=== PATIENT | male | born 1955 | race Caucasian/White ===

== ENCOUNTER 2020-02-07 08:24 | Inpatient (IN) | payer BC ==
[2020-02-02 13:10] LABS: BASOPHILS # (AUTO) 0.1 X10'3 (0-0.2); BASOPHILS % (AUTO) 0.9 % (0-1); EOSINOPHILS # (AUTO) 0.2 X10'3 (0-0.9); EOSINOPHILS % (AUTO) 3.5 % (0-6); LYMPHOCYTES # (AUTO) 2.4 X10'3 (1.1-4.8); LYMPHOCYTES % (AUTO) 40.1 % (21-51); MEAN CORPUSCULAR HEMOGLOBIN 32.7 PG (27.0-31.0); MEAN CORPUSCULAR HGB CONC 33.9 g/dL (33.0-36.5); MEAN CORPUSCULAR VOLUME 96.5 FL (78-98); MEAN PLATELET VOLUME 7.7 FL (7.4-10.4); MONOCYTES # (AUTO) 0.5 X10'3 (0-0.9); MONOCYTES % (AUTO) 8.3 % (2-12); NEUTROPHILS # (AUTO) 2.8 X10'3 (1.8-7.7); NEUTROPHILS % (AUTO) 47.2 % (42-75); PRE OP HEMATOCRIT 39.8 % (42.0-52.0); PRE OP HEMOGLOBIN 13.5 g/dL (14.0-17.9); PRE OP PLATELET COUNT 222 X10'3 (140-440); RED BLOOD COUNT 4.13 X10'6 (4.70-6.10); RED CELL DISTRIBUTION WIDTH 12.7 % (11.5-14.5)
[2020-02-02 13:24] LABS: ALBUMIN 3.5 G/DL (3.4-5.0); ALKALINE PHOSPHATASE 55 IU/L (46-116); BLOOD UREA NITROGEN 11 MG/DL (7-18); BUN/CREATININE RATIO 15.1 (5.4-32.0); CALCIUM 8.8 MG/DL (8.5-10.1); CHLORIDE 106 MMOL/L (99-107); CREATININE 0.73 MG/DL (0.60-1.10); PRE OP ALT 25 U/L (30-65); PRE OP ANION GAP 7 (8-16); PRE OP AST 17 U/L (10-37); PRE OP BILIRUB, TOTAL 0.4 MG/DL (0.0-1.0); PRE OP GLUCOSE 90 MG/DL (70-104); PRE OP POTASSIUM 3.6 MMOL/L (3.4-5.1); PRE OP SODIUM 144 MMOL/L (135-145); TOTAL CARBON DIOXIDE 31.2 MMOL/L (24-32); TOTAL PROTEIN 6.9 G/DL (6.4-8.2); eGFR > 90 ML/MIN
[2020-02-07] VITALS (18 sets, daily range): BP systolic 106–162; BP diastolic 62–95
[~2020-02-07] VITALS: Ht 192.4 cm; Wt 95.3 kg
[~2020-02-07 08:24] MED LIST: AMLO10TA13 PO; CYCL-1 PO; DUPI300S IM; HYDROcodone/acetaminophen 10/325mg tab PO PRN; HYDROmorphone inj. 0.5 MG/0.5 ML DISP.SYRIN IV PRN; acetaminophen 325mg tablet PO ONE; acetaminophen 325mg tablet PO PRN; bisacodyl 10mg suppository rectal RC PRN; ceFAZolin 2gm in dextrose, iso 50 ML IV ONE; celeCOXIB 100mg capsule PO ONE; diphenhydrAMINE 25mg capsule PO PRN; famotidine 20mg tablet PO ONE; gabapentin 300mg capsule PO ONE; magnesium hydroxide 30ml (MOM) UD suspension PO PRN; metoclopramide 5 mg/ml inj IV ONE; ondansetron/PF 4mg/2ml inj IV PRN; oxyCODONE SR 10mg (sust. release) tab -2 tabs (20mg) PO ONE; tranexamic acid inj. 1,000 MG in normal saline 100 ML IV ONE; vancomycin 1,500 MG in NS 500ml IV soln IV ONE
[2020-02-07] MEDS: ringers solution, lacted 1,000 ML IV SCH ×2 (09:26→15:10)
[2020-02-07] MEDS ORDERED: ketorolac trometh. 30mg/ml inj. ONE (11:05)
[2020-02-07] MEDS ORDERED: vancomycin 1,000mg inj ONE (11:05)
[2020-02-07] MEDS ORDERED: epiNEPHrine 1 mg/ml inj ONE (11:05)
[2020-02-07] MEDS ORDERED: cloNIDine hcl/PF 100mcg/ml inj ONE (11:05)
[2020-02-07] MEDS ORDERED: ROPIVAcaine 0.5% (5mg/ml) 30ml vial ONE (11:06)
[2020-02-07] MEDS ORDERED: fentaNYL/PF 50MCG/1 ML 2ML syringe ONE (11:19)
[2020-02-07] MEDS ORDERED: MIDAZolam 1mg/ml 10ml vial ONE (11:19)
[2020-02-07] MEDS ORDERED: propofol inj 20 ML IV ONE (11:20)
[2020-02-07] MEDS ORDERED: LIDOcaine 2% (20mg/ml) 5ml vial ONE (11:20)
[2020-02-07] MEDS ORDERED: ringers solution, lacted 1,000 ML IV SCH (11:54)
[2020-02-07] MEDS ORDERED: fentaNYL/PF 50MCG/1 ML 2ML syringe IV PRN ×2 (11:55)
[2020-02-07] MEDS ORDERED: morphine 4 MG/ML inj SYRINge IV PRN (11:55)
[2020-02-07] MEDS ORDERED: hydrALAZINE 20mg/ml inj. IV PRN (11:55)
[2020-02-07] MEDS ORDERED: ondansetron/PF 4mg/2ml inj IV PRN (11:55)
[2020-02-07] MEDS ORDERED: labetalol 20mg/4ml (5mg/ml) syringe IV PRN (11:55)
[2020-02-07] MEDS ORDERED: morphine 2 MG/ML inj. syringe IV PRN (11:55)
--- NOTE | 2020-02-07 12:52 | NUR ---
Received from OR via BED, accompanied by Anesthesiologist DR NIEVES and report given by Anesthesiologist. PT DROWSY, DENIES PAIN, DERMATOME LEVEL L-1-2, LEFT HIP W/GAUZE KEHINDE CORONA, LETICIA DRAIN W/GREEN LIGHT ILLUMINATION, LEFT LEG IN BRACE. Addendum: 02/07/20 at 1348 by Kristina Ryan RN Amended: Links added.
--- NOTE | 2020-02-07 14:12 | NUR ---
Report called to receiving nurse. Transferred via BED, CELL PHONE AND 1 BAG OF PERSONAL Belongings SENT W/PT TO ROOM 4006, RECEIVING RN AT BEDSIDE TO RECEIVE PT, BLL, CALL LIGHT GIVEN, SIDE RAILS UP X 2. Special Issues communicated to receiving nurse. YES. Addendum: 02/07/20 at 1526 by Kristina Ryan RN Amended: Links added.
[2020-02-07] MEDS ORDERED: DUPILUMAB 300 MG PO SCH (14:35)
[2020-02-07] MEDS: potassium cl 20mEq in 1/2 NS 1,000 ML IV SCH ×3 (14:54→20:52)
[2020-02-07] MEDS: gabapentin 300mg capsule PO SCH ×3 (15:08→20:50)
[2020-02-07] MEDS: ascorbic acid 500mg tablet PO SCH ×2 (15:09→20:49)
[2020-02-07] MEDS: aspirin 325mg tablet PO SCH (15:09)
[2020-02-07] MEDS: multivitamins, therapeutics tablet PO SCH (15:09)
[2020-02-07] MEDS: cefazolin/dext.iso 2gm/50ml 50 ML IV SCH (15:52)
[2020-02-07] MEDS: HYDROcodone/acetaminophen 10/325mg tab PO PRN ×2 (16:35→20:51)
[2020-02-07] MEDS: HYDROmorphone 1 mg/ml syringe IV PRN ×2 (17:21→22:36)
[2020-02-07] MEDS ORDERED: tranexamic acid inj. 1,000 MG in normal saline 100ml IV soln 100 ML IV ONE (18:00)
--- NOTE | 2020-02-07 18:51 | NUR ---
RECEIVED REPORT FROM SVETLANA BARGER AND ASSUMED PATIENT CARE Addendum: 02/07/20 at 1853 by Reena Cat RN RECEIVED REPORT FROM RODO AT [id number]
[2020-02-07] MEDS: diphenhydrAMINE 25mg capsule PO PRN (20:50)
[2020-02-07] MEDS: sennosides 8.6mg tablet PO SCH (20:50)
[2020-02-07] MEDS ORDERED: VANCOMYCIN 1,500MG inj. 1,500 MG in normal saline 500ml IV soln 500 ML IV SCH (23:00)
[2020-02-08] MEDS: cefazolin/dext.iso 2gm/50ml 50 ML IV SCH (01:13)
[2020-02-08] MEDS: HYDROcodone/acetaminophen 10/325mg tab PO PRN (01:14)
[2020-02-08] MEDS ORDERED: oxyCODONE/APAP 10/325mg tablet PO PRN (05:00)
[2020-02-08] MEDS: oxyCODONE/APAP 10/325mg tablet PO PRN ×4 (05:13→21:45)
[2020-02-08 06:00] VITALS: BP 152/92
[2020-02-08] MEDS: potassium cl 20mEq in 1/2 NS 1,000 ML IV SCH ×3 (06:00→22:54)
[2020-02-08] MEDS: gabapentin 300mg capsule PO SCH ×3 (08:00→21:45)
[2020-02-08] MEDS: multivitamins, therapeutics tablet PO SCH (08:00)
[2020-02-08] MEDS: amLODIPine 5mg tablet PO SCH (08:00)
[2020-02-08] MEDS: ascorbic acid 500mg tablet PO SCH ×2 (08:01→21:45)
[2020-02-08] MEDS: aspirin 325mg tablet PO SCH (08:02)
[2020-02-08 08:03] LABS: ANION GAP 9 (8-16); BASOPHILS % (AUTO) 0.4 % (0-1); CHLORIDE 106 MMOL/L (99-107); EOSINOPHILS # (AUTO) 0.1 X10'3 (0-0.9); EOSINOPHILS % (AUTO) 1.6 % (0-6); HEMATOCRIT 36.9 % (42.0-52.0); HEMOGLOBIN 12.7 g/dl (14.0-17.9); LYMPHOCYTES # (AUTO) 1.3 X10'3 (1.1-4.8); LYMPHOCYTES % (AUTO) 20.2 % (21-51); MEAN CORPUSCULAR HGB CONC 34.3 g/dL (33.0-36.5); MEAN CORPUSCULAR VOLUME 96.1 FL (78-98); MEAN PLATELET VOLUME 7.4 FL (7.4-10.4); MONOCYTES # (AUTO) 0.5 X10'3 (0-0.9); MONOCYTES % (AUTO) 7.4 % (2-12); NEUTROPHILS # (AUTO) 4.4 X10'3 (1.8-7.7); NEUTROPHILS % (AUTO) 70.4 % (42-75); PLATELET COUNT 209 X10'3 (140-440); RED BLOOD COUNT 3.84 X10'6 (4.70-6.10); RED CELL DISTRIBUTION WIDTH 12.5 % (11.5-14.5); SODIUM 140 MMOL/L (135-145); TOTAL CARBON DIOXIDE 25.3 MMOL/L (24-32); WHITE BLOOD COUNT 6.2 X10'3 (4.5-11.0)
[2020-02-08 08:05] LABS: POTASSIUM 4.2 MMOL/L (3.5-5.1)
[2020-02-08 09:55] VITALS: BP 157/83
[2020-02-08] MEDS ORDERED: ASPI-1 PO (11:55)
[2020-02-08] MEDS ORDERED: OXYC-511 PO (11:55)
--- NOTE | 2020-02-08 12:25 | NUR ---
Joint Replacement Consult: Pt seen by [facility] for written/verbal high protein ed w/ RD contact information provided. Pt PO 100% first regular diet in process of discharge during RD visit. Addendum: 02/08/20 at [address] Amended: Links added. Addendum: 02/08/20 at [address] Joint Replacement Consult: Pt seen by [facility] for written/verbal high protein ed w/ RD contact information provided. Pt PO 100% first regular diet in process of discharge during RD visit. Pt is agreeable to chocolate ensure pudding at lunches; dietary notified.
[2020-02-08 14:00] VITALS: BP 173/92
[2020-02-08 18:00] VITALS: BP 192/91
--- NOTE | 2020-02-08 18:13 | NUR ---
Report to Angel Gonzalez RN
[2020-02-08] MEDS: sennosides 8.6mg tablet PO SCH (21:45)
[2020-02-08] MEDS: diphenhydrAMINE 25mg capsule PO PRN (21:45)
[2020-02-08 22:00] VITALS: BP 146/75
[2020-02-09] MEDS: oxyCODONE/APAP 10/325mg tablet PO PRN ×2 (01:27→06:53)
[2020-02-09 06:30] VITALS: BP 167/91
--- NOTE | 2020-02-09 06:34 | NUR ---
Patient in room [facility]TH[facility] 4006. I have received report from Danya BARGER and had the opportunity to ask questions and assume patient care.
[2020-02-09] MEDS: amLODIPine 5mg tablet PO SCH (07:38)
[2020-02-09] MEDS: ascorbic acid 500mg tablet PO SCH (07:39)
[2020-02-09] MEDS: gabapentin 300mg capsule PO SCH (07:39)
[2020-02-09] MEDS: aspirin 325mg tablet PO SCH (07:39)
[2020-02-09] MEDS: multivitamins, therapeutics tablet PO SCH (07:39)
[2020-02-09 08:29] LABS: BASOPHILS % (AUTO) 0.3 % (0-1); EOSINOPHILS # (AUTO) 0.1 X10'3 (0-0.9); EOSINOPHILS % (AUTO) 1.5 % (0-6); HEMATOCRIT 39.5 % (42.0-52.0); HEMOGLOBIN 13.5 g/dl (14.0-17.9); LYMPHOCYTES # (AUTO) 1.5 X10'3 (1.1-4.8); LYMPHOCYTES % (AUTO) 18.4 % (21-51); MEAN CORPUSCULAR HEMOGLOBIN 32.7 PG (27.0-31.0); MEAN CORPUSCULAR HGB CONC 34.1 g/dL (33.0-36.5); MEAN CORPUSCULAR VOLUME 95.6 FL (78-98); MEAN PLATELET VOLUME 7.3 FL (7.4-10.4); MONOCYTES # (AUTO) 0.8 X10'3 (0-0.9); MONOCYTES % (AUTO) 10.2 % (2-12); NEUTROPHILS # (AUTO) 5.6 X10'3 (1.8-7.7); NEUTROPHILS % (AUTO) 69.6 % (42-75); PLATELET COUNT 208 X10'3 (140-440); RED BLOOD COUNT 4.13 X10'6 (4.70-6.10); RED CELL DISTRIBUTION WIDTH 12.8 % (11.5-14.5)
[2020-02-09 09:56] VITALS: BP 120/68
--- NOTE | 2020-02-09 10:15 | NUR ---
patient discharge to private vehicle with his , patient was taught all discharge instructions.
== END 2020-02-09 10:13 | disposition home or self-care (01) | DRG 470 ==
LOC: PAS 08:24 → ORTHO 4S 08:25
PROVIDERS: ADMIT Orthopaedic Surgery; ATTEND Orthopaedic Surgery
PROC: 0SRB06Z Replacement of Left Hip Joint with Oxidized Zirconium on Polyethylene Synthetic Substitute, Open Approach (ICD-10-PCS; principal; 2020-02-07 11:17)
DX: M16.12 Unilateral primary osteoarthritis, left hip (principal); D62 Acute posthemorrhagic anemia; I10 Essential (primary) hypertension; Z79.899 Other long term (current) drug therapy
CPT/HCPCS: Z7506; Z7508; 36415; 71046; 72170; 80051; 80053; 82948; 85025; 86885; 86900; 86901; 87081; 93005; 97110; 97116; 97161; 97530; A4215; A4615; A7000; C1776; G0378; J0171; J0735; J1170; J1885; J2001; J2250; J2704; J2765; J2795; J3010; J3370; J3480; J7040; J7120; Q0163